=== PATIENT | male | born 1955 | race Caucasian/White ===

== ENCOUNTER 2020-08-08 11:00 | Outpatient (RCR) | payer BC, SELFPAY ==
--- NOTE | 2020-06-20 13:27 | HP.OTEVAL_ITS ---
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 Date of Evaluation: 06/20/20 Occupational Therapist: Sierra Tiwari, SCOTT/Dayday, CHT - Subjective This 65 year old male was seen for OT eval with dx of a left unilateral primary osteoarthritis of 1st carpometacarpal joint. pt states he had pain on and off for a few years but this past summer pain increased and he decided to have sx. pt is 3 weeks and 6 days s/p. pt states sx was 05/24/20 pt had cast removed today. pt states he felt cast was tight from time to time but feels he tolerated wearing it well- reprots numbness aroune incision and down to tip of thumb (dorsal side). right handed. pt is retired likes to golf and has property he has to [place]. - Pain left hand 0 Pain Intensity Range: 4 - ROM Wrist: right 65/70 left 55/5 CMC: right 10 left 0 MP: right 55 left 10 IP: right 70 left 30 - Strength Six Sigma Project Manager: right 105# left NT Lateral Pinch: right 18# left NT Tripod Pinch: right 16# left NT - Quick DASH-Disab of Arm,Shoulder& Hand Quick DASH Score: 77.2725 - Goals Goal:100% adherence to protocol: Yes Comment: cmc arthroplasty Goal:Daily scar massage when approriate: Yes Goal:ROM equal to unaffected hand: Yes Goal:[employer] Project Manager/Pinch strength at least 75% of unaffected hand: Yes Goal:No pain with affected hand use: Yes Goal:Full use of affected hand in daily activities including: Yes Goal:Decrease scar hypersensitivity: Yes Other Goal: pt will demo understanding of orthosis use, care and wearing instructions by end of 1st session. - Rehabilitation General Assessment: Pt is 3 weeks 6 days s/p left CMC arthroplasty. Pt demo with limited left wrist and thumb ROM and due to newly healing structures in limited with strength and use of left hand with ADls and IADLs. pt would benefit from skilled OT services 1x week for 6 weeks to assist with his recovery and return pt to PLOF. Today therapys armin. custom orthosis left thumb spica- ed. pt on use and care of orthosis. pt demo understanding. Therapist ed. pt on short arch wrist (dart throwers motion), supported thumb MP and IP flex along with tendon glides. Pt demo understanding. therapist ed. pt on scar mtg and skin care. Rehabilitation Potential: Good - Anticipated Interventions A/AAROM/PROM, Strengthening, Scar Care, Triggerpoint Release, Sensory Retraining, Modalities, Orthoses, Joint Protection/Energy Conservation, Ergonomic Education, Fine Motor Coord/[place] - Visit Plan Frequency: 1x/Week Duration: 6 Weeks TEXT: Thank you for the opportunity to evaluate your patient. For Medicare and Medicare HMO plans, please review the plan of care and approve it. It will need to be FAXED BACK to us at [phone] for Medicare purposes. Please let me know if there are questions or concerns regarding this plan of care. Physician Signature: Date:
--- NOTE | 2020-08-08 11:24 | HP.OTDCSUM_ITS ---
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 Please see the following information for a summary of their discharge status. % Improvement: 95 Objective/Function: left nutrition helper strength 78#. left lateral pinch 12#. left tripod pinch 10#. CMC10. MP 30. IP 60. pt has made great gains in is rehab from a left CMC arthroplasty- pt continues to demo slight MP hyper ext with some tasks but has been ed. to avoid and cont thumb stabilization ex. pt and demo understanding. Patient Goals: Regain Mobility, Use Hand/Wrist/Arm Normally Again Goal:100% adherence to protocol: Yes Goal:Daily scar massage when approriate: Yes Goal:ROM equal to unaffected hand: Yes Goal:Business And Financial Counsel/Pinch strength at least 75% of unaffected hand: Yes Goal:No pain with affected hand use: Yes Goal:Full use of affected hand in daily activities including: Yes Goal:Decrease scar hypersensitivity: Yes Other Goal: pt will demo understanding of orthosis use, care and wearing instruc tions by end of 1st session. Plan: cont with cmc arthroplasty protocol Discharge Comments: pt was seen for 6 OT visits following a left CMC arthroplas ty- pt made great gains and has retured to IND level with ADls and IADLs- pt is to cont with thumb stabilization and use of soft bracing with heavy work tasks. pt to call with questions or concerns. Pt agree with D/C If there are questions or concerns regarding this patient's occupational therapy, please fell free to call me at [phone]. Thank you for the referral of this patient. Sincerely, Sierra Tiwari, OTR/L, CHT
== END 2020-08-08 14:09 | disposition home or self-care (01) ==
LOC: OT 11:00
PROVIDERS: PCP Family Medicine; Referring Provider Physician Assistant Surgical; Visit Provider Physician Assistant Surgical
DX: M18.12 Unilateral primary osteoarthritis of first carpometacarpal joint, left hand (principal)
CPT/HCPCS: 97035; 97110; 97140; 97166; 97530; 97760